=== PATIENT | female | born 1995 | race Caucasian/White ===

== ENCOUNTER → 2020-02-27 | Outpatient (REF) | payer BC ==
[2020-02-27 17:41] LABS: HEMATOCRIT 41.7 % (36.0-47.0); HEMOGLOBIN 13.7 g/dl (12.0-15.5); MEAN CORPUSCULAR HEMOGLOBIN 30.9 pg (27.0-33.0); MEAN CORPUSCULAR HGB CONC 32.9 g/dl (32.0-36.5); MEAN CORPUSCULAR VOLUME 93.9 fl (80.0-96.0); PLATELET COUNT, AUTOMATED 288 10^3/uL (150-450); RED BLOOD COUNT 4.44 10^6/uL (4.00-5.40); WHITE BLOOD COUNT 7.9 10^3/uL (4.0-10.0)
[2020-02-27 19:02] LABS: HEPATITIS C VIRUS ABY INDEX 0.1 INDEX (<0.8); HIV 1&2 SCREEN CENTAUR NEGATIVE (NEGATIVE)
[2020-02-28 05:33] LABS: CHLAMYDIA DNA AMPLIFICATION NEGATIVE (NEGATIVE); GC DNA AMPLIFICATION NEGATIVE (NEGATIVE)
== END ==
LOC: M PLALAB 15:35
PROVIDERS: ATTEND Obstetrics & Gynecology
DX: O09.291 Supervision of pregnancy with other poor reproductive or obstetric history, first trimester (principal); Z3A.00 Weeks of gestation of pregnancy not specified

== ENCOUNTER 2020-03-19 16:40 | Emergency (ER) | payer BC | END 2020-03-19 18:00 | disposition left against medical advice (07) | LOC: M ED 16:40 | DX: Z53.21 Procedure and treatment not carried out due to patient leaving prior to being seen by health care provider (principal) ==

== ENCOUNTER → 2020-04-14 | Outpatient (CLI) | payer BC ==
[2020-04-14 17:02] LABS: HEMATOCRIT 43.7 % (36.0-47.0); HEMOGLOBIN 14.7 g/dl (12.0-15.5); MEAN CORPUSCULAR HEMOGLOBIN 30.8 pg (27.0-33.0); MEAN CORPUSCULAR HGB CONC 33.6 g/dl (32.0-36.5); MEAN CORPUSCULAR VOLUME 91.6 fl (80.0-96.0); PLATELET COUNT, AUTOMATED 263 10^3/uL (150-450); RED BLOOD COUNT 4.77 10^6/uL (4.00-5.40); WHITE BLOOD COUNT 11.1 10^3/uL (4.0-10.0)
[2020-04-14 17:45] LABS: ALBUMIN 3.9 GM/DL (3.2-5.2); ALT/SGPT 11 U/L (12-78); BILIRUBIN,TOTAL 0.5 MG/DL (0.2-1.0); BLOOD UREA NITROGEN 7 MG/DL (7-18); CALCIUM LEVEL 9.4 MG/DL (8.5-10.1); CARBON DIOXIDE LEVEL 21 MEQ/L (21-32); CHLORIDE LEVEL 112 MEQ/L (98-107); CREATININE FOR GFR 0.76 MG/DL (0.55-1.30); FREE T4 1.14 NG/DL (0.76-1.46); GLOMERULAR FILTRATION RATE > 60.0 (>60); GLUCOSE, FASTING 76 MG/DL (70-100); SODIUM LEVEL 140 MEQ/L (136-145); TOTAL PROTEIN 7.3 GM/DL (6.4-8.2)
== END ==
LOC: M PLALAB 12:35
PROVIDERS: ATTEND Specialist
DX: O22.10 Genital varices in pregnancy, unspecified trimester (principal)

== ENCOUNTER → 2020-04-25 | Outpatient (CLI) | payer BC ==
--- NOTE | 2020-05-20 14:07 | REP ---
COMPLETE OBSTETRICAL ULTRASOUND CLINICAL: Anatomical evaluation. TECHNIQUE: Transabdominal obstetrical ultrasound with color Doppler evaluation. FINDINGS: Ultrasound examination demonstrates single live intrauterine in breech presentation. motion was identified by technologist. heart rate equals 142 beats per minute. Placenta noted posteriorly and grade 0 without evidence for placenta previa or abruption. The placental tip is 2.7 cm from the closed internal os. The cervix measures 3.6 cm in length. Amniotic fluid volume is normal. MEASUREMENTS: BPD 40 mm 18 weeks 1 day HC 141 mm 17 weeks 3 days AC 126 mm 18 weeks 2 days FL 23 mm 17 weeks 1 day HL 25 mm 17 weeks 6 days Estimated age by current measurements 17 weeks 6 days with estimated date of delivery 09/27/2020. Estimated weight 202 grams (23rd percentile). Limited anatomical assessment demonstrates normal cisterna magna, cavum, thalamus, stomach, kidneys/bladder, three-vessel cord/cord insertion, facial features, and extremities. Limited evaluation of the four chamber heart and cardiac ventricular outflow tracts noted and spine. IMPRESSION: Single live intrauterine demonstrating appropriate estimated weight and growth. Limited evaluation of the heart/ventricular outflow tracts and spine warrant reevaluation and follow-up. MTDD
== END ==
LOC: M WHC 07:59
PROVIDERS: ATTEND Specialist
DX: Z79.82 Long term (current) use of aspirin (principal); Z3A.17 17 weeks gestation of pregnancy